=== PATIENT | male | born 1990 | race Caucasian/White ===

== ENCOUNTER 2024-06-07 09:26 | Emergency (ER) | payer MEDICAID ==
[~2024-06-07] VITALS: Ht 175.3 cm; Wt 79.4 kg
[~2024-06-07 09:26] MED LIST: ACET500T99 PO; BACTO TP; CEPH-588 PO; IBUP-2213 PO; LEVO750T75 PO; NAPR-1704 PO; SULF-59 PO
[2024-06-07 09:53] VITALS: BP 128/90; PULSE 100; RESP 18; TEMP 98.6; O2SAT 100
--- NOTE | 2024-06-07 10:11 | NUR ---
PT AMB TO FRONT LOBBY
[2024-06-07 10:40] LABS: APPEARANCE,URINE CLOUDY (CLEAR); BILIRUBIN,URINE NEGATIVE (NEGATIVE); BLOOD, URINE TRACE-I (NEGATIVE); COLOR,URINE YELLOW (YELLOW); LEUKOCYTE ESTERASE ,URINE 2+ (NEGATIVE); NITRITE, URINE NEGATIVE (NEGATIVE); PROTEIN,URINE NEGATIVE (NEGATIVE); UGLUCOSE NEGATIVE (NEGATIVE); UROBILINOGEN,URINE 0.2 EU/dL (0.2 - 1)
[2024-06-07] MEDS ORDERED: cefTRIAXone 500 MG VIAL ONE (10:47)
[2024-06-07] MEDS ORDERED: LIDOCAINE MPF 1% 5 ML ONE (10:47)
[2024-06-07 10:51] LABS: BACTERIA,URINE 10-30 (MOD) /HPF (None Seen); SQUAMOUS EPITHELIAL CELL,UR 0-3 (FEW) /LPF (0-3 (FEW)); WBC,URINE 16-25 (MOD) /HPF (0-5)
[2024-06-07] MEDS: cefTRIAXone 500 MG in LIDOCAINE MPF 1% 1 ML IM ONE (10:52)
--- NOTE | 2024-06-07 12:00 | NUR ---
BLOOD DRAWN BY RN IN TRIAGE. PT AMB TO FRONT LOBBY
[2024-06-07 12:20] LABS: HIV RAPID SCREEN NON-REACTIVE (NON REACTIV)
[2024-06-07 12:40] LABS: RAPID PLASMA REAGIN NON-REACTIVE (Non Reactiv)
[2024-06-07] MEDS ORDERED: DOXY-690 PO (12:56)
--- NOTE | 2024-06-07 13:04 | NUR ---
PT DISCHARGED. PT LEFT W OUT PAPERWORK
--- NOTE | 2024-06-07 13:30 | NUR ---
Chart checked and completed. The patient's care was reviewed and supervised by NICOLLE GARZA RN.
== END 2024-06-07 13:04 | disposition home or self-care (01) ==
LOC: MED 09:26
DX: Z11.3 Encounter for screening for infections with a predominantly sexual mode of transmission (principal); N34.2 Other urethritis; Z79.899 Other long term (current) drug therapy
CPT/HCPCS: 81001; 86592; 86703; 87086; 87491; 96372; 99283; J0696; J2001

== ENCOUNTER 2024-06-19 21:47 | Emergency (ER) | payer MEDICAID ==
[~2024-06-19] VITALS: Ht 175.3 cm; Wt 72.6 kg
[~2024-06-19 21:47] MED LIST changes: +DOXY-690 PO
[2024-06-19 21:59] VITALS: BP 144/91; PULSE 98; RESP 18; TEMP 97.2; O2SAT 99
[2024-06-19] MEDS ORDERED: PROPOFOL 200 MG/20 ML VIAL IV ONE (22:48)
[2024-06-19] MEDS: PROPOFOL 200 MG/20 ML VIAL IV ONE (22:55)
[2024-06-20 01:20] VITALS: BP 149/88; PULSE 88; RESP 16; TEMP 98.2; O2SAT 99
== END 2024-06-20 01:20 | disposition home or self-care (01) ==
LOC: MED 21:47
DX: S43.004A Unspecified dislocation of right shoulder joint, initial encounter (principal); Z79.899 Other long term (current) drug therapy; W01.0XXA Fall on same level from slipping, tripping and stumbling without subsequent striking against object, initial encounter; Y92.89 Other specified places as the place of occurrence of the external cause; Y93.89 Activity, other specified; Y99.8 Other external cause status
CPT/HCPCS: 23650; 73020; 73030; 99152; 99285; J2704; Q0092

== ENCOUNTER 2024-07-01 20:04 | Emergency (ER) | payer MEDICAID ==
[~2024-07-01] VITALS: Ht 172.7 cm; Wt 77.1 kg
[2024-07-01 20:06] VITALS: BP 113/71; PULSE 109; RESP 20; TEMP 98.3; O2SAT 95
[2024-07-01] MEDS ORDERED: MORPHINE SULFATE 4 MG/ML SYR ONE (20:30)
[2024-07-01] MEDS: MORPHINE SULFATE 4 MG/ML SYR IVP ONE (20:33)
[2024-07-01] MEDS: NACL 0.9% 1,000 ML IV ONE (20:58)
[2024-07-01] MEDS: PROPOFOL 200 MG/20 ML VIAL IV ONE (21:24)
[2024-07-01 22:15] VITALS: BP 138/72; PULSE 100; RESP 15; TEMP 98; O2SAT 97
== END 2024-07-01 22:15 | disposition home or self-care (01) ==
LOC: MED 20:04
DX: M24.411 Recurrent dislocation, right shoulder (principal); Z79.899 Other long term (current) drug therapy; W01.0XXA Fall on same level from slipping, tripping and stumbling without subsequent striking against object, initial encounter; Y92.89 Other specified places as the place of occurrence of the external cause; Y93.89 Activity, other specified; Y99.8 Other external cause status
CPT/HCPCS: 23650; 73030; 96361; 96374; 99152; 99285; J2270; J2704; J7030

== ENCOUNTER 2024-07-15 21:41 | Emergency (ER) | payer MEDICAID ==
[~2024-07-15] VITALS: Ht 177.8 cm; Wt 77.1 kg
[2024-07-15 21:52] VITALS: BP 125/79; PULSE 100; RESP 18; TEMP 98.2; O2SAT 100
[2024-07-15 22:51] LABS: BASOPHILS # (AUTO) 0.1 K/uL (0.00-0.22); BASOPHILS % (AUTO) 1.1 % (0.0-2.0); EOSINOPHILS # (AUTO) 0.3 K/uL (0-0.4); EOSINOPHILS % (AUTO) 3.8 % (0.0-4.0); HEMOGLOBIN 10.3 g/dL (12.0-18.0); LYMPHOCYTES # (AUTO) 1.1 K/uL (2.0-11.5); LYMPHOCYTES % (AUTO) 15.8 % (20.5-51.1); MEAN CORPUSCULAR HEMOGLOBIN 28 pg (27-31); MEAN CORPUSCULAR HGB CONC 33 g/dL (33-37); MEAN CORPUSCULAR VOLUME 83.4 fL (80-94); MONOCYTES # (AUTO) 0.5 K/uL (0.8-1.0); MONOCYTES % (AUTO) 7.8 % (1.7-9.3); NEUTROPHILS # (AUTO) 4.9 K/uL (1.8-7.7); NEUTROPHILS % (AUTO) 71.5 % (42.2-75.2); PLATELET COUNT (AUTO) 442 K/uL (140-450); RED BLOOD CELL COUNT(AUTO) 3.72 MIL/uL (4.20-6.10); WHITE BLOOD COUNT (AUTO) 6.9 K/uL (4.8-10.8)
[2024-07-15 23:16] LABS: ANION GAP 10.4 (8-16); CALCIUM 9.1 mg/dL (8.5-10.1); CARBON DIOXIDE 30.3 mmol/L (21-32); CREATININE 0.9 mg/dL (0.6-1.3); POTASSIUM 3.7 mmol/L (3.5-5.1)
[2024-07-16] MEDS ORDERED: NAPR-337 PO (01:30)
== END 2024-07-16 01:32 | disposition home or self-care (01) ==
LOC: MED 21:41
DX: S22.41XA Multiple fractures of ribs, right side, initial encounter for closed fracture (principal); S30.1XXA Contusion of abdominal wall, initial encounter; Z79.899 Other long term (current) drug therapy; V09.9XXA Pedestrian injured in unspecified transport accident, initial encounter; Y93.55 Activity, bike riding; Y92.89 Other specified places as the place of occurrence of the external cause; Y99.8 Other external cause status
CPT/HCPCS: 36415; 74177; 80048; 85025; 99285; Q9967